=== PATIENT | male | born 1935 | race Caucasian/White ===

== ENCOUNTER 2021-12-06 08:48 | Outpatient (CLI) | payer MEDICARE, OTHER, SELFPAY ==
--- NOTE | ~2021-12-06 | CT_ITS ---
EXAMINATION: CT abdomen pelvis w con EXAM DATE: 12/06/2021 09:35 INDICATION: Malignant neoplasm of prostate. TECHNIQUE: Spiral CT of the abdomen and pelvis was performed following intravenous injection of 100 m L Omnipaque 350. Axial, coronal and sagittal images of the abdomen and pelvis were reviewed. The do se-length product (DLP) for this examination was 865.02 mGy-cm. The exposure was tailored according to patient size (auto mA exposure control), and iterative reconstruction (ASIR) was used as additiona l dose reduction technique. There is no prior study for comparison. FINDINGS: There is a 4 cm heterogeneous enhancing mass in the spleen, differential diagnosis includin g hemangioma, hematoma, myeloma, lymphoma, metastatic disease. Liver, adrenal glands, are unremarkabl e. There is 1.2 cm pancreatic head cystic lesion. The differential diagnosis includes pseudocyst, intrad uctal papillary mucinous neoplasm (IPMN), mucinous cystic neoplasm (MCN), and the less common serous cystadenoma and neuroendocrine tumor. Correlate for history of pancreatitis. There is a 1.9 cm right renal mass in the lower pole, differential diagnosis including renal cell can cer, lymphoma. There are other renal lesions which are consistent with cysts. Several punctate right calyceal stones. No obstructive nephropathy. Prostatectomy. Probable pelvic lymph node dissection cli ps. Gallbladder not identified, patient likely has had cholecystectomy. The liver is unremarkable. Adrena l glands unremarkable. The bladder is unremarkable. There is no retroperitoneal or pelvic lymphadeno william. There is mild to moderate scattered arteriosclerotic disease. The appendix is not positively visualized. There is no pericecal inflammatory change to suggest appe ndicitis. There is mild sigmoid colonic diverticulosis. There is no adjacent inflammatory change to suggest diverticulitis. The stomach and small bowel are unremarkable. There is expected amount of co lonic stool. No free intraperitoneal gas. The heart is normal in size. There are no pericardial or pleural effusions. There is 4 mm right lower lobe noncalcified nodule, most likely granuloma. Slightly mottled bone density, most notable in the right iliac crest with some regions of cortical th inning. Possible myeloma. Please note that this would not likely be apparent on bone scan which was o btained same date. IMPRESSION: 1. Heterogeneous splenic mass, differential diagnosis including hemangioma, hamartoma, multiple myel robyn, lymphoma, metastatic disease. 2. Right iliac crest decreased bone density, endosteal scalloping. Possible myeloma. 3. Right renal mass statistically most likely renal cell cancer. Myeloma, lymphoma or other malignan cy also possible. 4. Pancreatic cystic lesion likely benign but will be reevaluated on follow-up CT for other findings as described. 5. Right lower lobe nodule probably granuloma. 6. Right nephrolithiasis. 7. Sigmoid diverticulosis. Reviewed, dictated and finalized at location G. IMPRESSION: 1. Heterogeneous splenic mass, differential diagnosis including hemangioma, rich martoma, multiple myeloma, lymphoma, metastatic disease. 2. Right iliac crest decreased bone density, endosteal scalloping. Possible my eloma. 3. Right renal mass statistically most likely renal cell cancer. Myeloma, lymp hugh or other malignancy also possible. 4. Pancreatic cystic lesion likely benign but will be reevaluated on follow-up CT for other findings as described. 5. Right lower lobe nodule probably granuloma. 6. Right nephrolithiasis. 7. Sigmoid diverticulosis.
--- NOTE | ~2021-12-06 | NM_ITS ---
EXAMINATION: NM bone scan whole body DATE: 12/06/2021 13:01 INDICATION: Malignant neoplasm of the prostate TECHNIQUE: 24.2 mCi Tc-99m HDP was administered intravenously. Delayed whole-body scintigrams were o btained. COMPARISON: CT abdomen and pelvis dated 12/06/2021 FINDINGS: Glycogenic joint centered uptake, moderate severity at the right first metatarsophalangeal joint and at the joints in the right midfoot and mild the corresponding joints in the left foot, at the bilater al acromioclavicular joints and at the right wrist and carpus. No other suspicious foci of increased bone uptake to suggest metastatic disease. IMPRESSION: 1. Typical pattern of likely degenerative joint centered uptake in the extremities. No evident metast atic disease. Reviewed, dictated and finalized at location A. IMPRESSION: 1. Typical pattern of likely degenerative joint centered uptake in the extremit ies. No evident metastatic disease.
--- NOTE | ~2021-12-06 | XR_ITS ---
EXAMINATION: XR chest 2V 12/06/2021 09:19 INDICATION: Malignant neoplasm of the prostate PROCEDURE: 2 view chest COMPARISON: No prior studies for comparison. FINDINGS: The lungs are clear. The cardiomediastinal silhouette is within normal limits. There are no pleural effusions. There is no pneumothorax suspected. There are calcified granulomas in the lef t lung base. IMPRESSION: 1: NO ACUTE CARDIOPULMONARY DISEASE. Reviewed, dictated and finalized at location A.
[2021-12-06 09:30] LABS: Estimated Glomerular Filt Rate 39
== END 2021-12-06 08:49 | disposition home or self-care (01) ==
LOC: ANHIMG 08:55
PROVIDERS: Visit Provider Urology
DX: C61 Malignant neoplasm of prostate (principal); N20.0 Calculus of kidney; K57.30 Diverticulosis of large intestine without perforation or abscess without bleeding; N28.89 Other specified disorders of kidney and ureter
CPT/HCPCS: 71046; 74177; 78306; A9561; Q9967